=== PATIENT | male | born 1960 | race Caucasian/White ===

== ENCOUNTER → 2018-08-26 | Outpatient (CLI) | payer OTHER ==
--- NOTE | 2018-08-26 14:40 | Diagnostic Imaging Report ---
EXAMINATION: Thyroid ultrasound. CLINICAL HISTORY: Thyroid abnormality detected on screening carotid ultrasound COMPARISON: None. . DISCUSSION: Transverse and longitudinal images of the thyroid were obtained utilizing grayscale and color Doppler modalities. The right thyroid lobe measures 4.9 x 2.1 x 2.2 cm and shows normal echogenicity. No nodules are seen. The left thyroid lobe measures 4.3 x 1.7 x 1.9 cm and shows normal echogenicity. Mixed cystic and solid (1 point), Hypoechoic (2 points), Wider than tall (0 point), ill-defined margin (0 point), no echogenic foci (0 point) nodule measures 0.7 x 0.6 x 0.7 cm in the lower pole. (TR 3) The thyroid isthmus measures 0.6 cm and shows normal echogenicity. No nodules are seen. There is no adenopathy. IMPRESSION: Minimally complex cystic nodule in the left lower pole does not meet TIRADS criteria for percutaneous sampling or sonographic follow-up. Signed by: Dr. Hayes Robison M.D. on 08/26/2018 2:37 PM
== END ==
LOC: US 13:29
PROVIDERS: ATTEND Family Medicine
DX: R93.89 Abnormal findings on diagnostic imaging of other specified body structures (principal)
CPT/HCPCS: 76536; 93880